=== PATIENT | female | born 1965 | race Two or more races ===

== ENCOUNTER → 2016-10-15 | Day surgery (SDC) | payer SELFPAY ==
[~2016-10-15] VITALS: Ht 154.9 cm; Wt 104.1 kg
[~2016-10-15] MED LIST: ASPIRIN EC81 MG PO; CARAFATE1 GM PO; DELTASONE20 MG PO; EYE STREAM; MOTRIN800 MG PO; PHENERGAN25 M1 PO; PRILOSEC20 M1 PO; PROTONIX40 MG PO; TEARGEN1 BOT OPHTH; TENORMIN25 M1 PO; ZANTAC (NON-FO150 MG PO; ZOVIRAX200 MG PO; [UNRECOGNIZED DRUG - OTHER] OPHTH
== END ==
LOC: GPOC 10-14 11:00
PROC: 0DB38ZX Excision of Lower Esophagus, Via Natural or Artificial Opening Endoscopic, Diagnostic (ICD-10-PCS; principal; 2016-10-15)
PROC: 0DB68ZX Excision of Stomach, Via Natural or Artificial Opening Endoscopic, Diagnostic (ICD-10-PCS; 2016-10-15)
PROC: 0DB28ZX Excision of Middle Esophagus, Via Natural or Artificial Opening Endoscopic, Diagnostic (ICD-10-PCS; 2016-10-15)
DX: K29.50 Unspecified chronic gastritis without bleeding (principal); I10 Essential (primary) hypertension; K21.9 Gastro-esophageal reflux disease without esophagitis; Z90.89 Acquired absence of other organs; Z79.82 Long term (current) use of aspirin; Z79.899 Other long term (current) drug therapy
CPT/HCPCS: J2001; J7030